=== PATIENT | female | born 1995 ===

== ENCOUNTER 2019-01-11 01:10 | Inpatient (IN) | payer MEDICAID ==
[2019-01-11] MEDS ORDERED: Methylergonovine 0.2 MG/1 ML Amp IM PRN (01:32)
[2019-01-11] MEDS ORDERED: Butorphanol 1 MG/ML SDV IVPUSH PRN (01:32)
[2019-01-11] MEDS ORDERED: Tranexamic Acid 1,000 MG in Sodium Chloride 0.9% 100 ML IV PRN (01:32)
[2019-01-11] MEDS ORDERED: Sodium Chloride 0.9% 10 ML SDV IV PRN (01:32)
[2019-01-11] MEDS ORDERED: Lidocaine 1% 50 ML MDV INJECT PRN (01:32)
[2019-01-11] MEDS ORDERED: Carboprost Tromethamine 250 MCG/1 ML Amp IM PRN (01:32)
[2019-01-11] MEDS ORDERED: Sodium Chloride 0.9% 10 ML Syringe FLUSH PRN (01:32)
[2019-01-11] MEDS ORDERED: Nalbuphine 10 MG/1 ML Vial IVPUSH PRN (01:32)
[2019-01-11] MEDS ORDERED: Sodium Chloride 0.9% 2.5 ML Syringe FLUSH PRN (01:32)
[2019-01-11] MEDS ORDERED: Ondansetron 4 MG/2 ML SDV IVPUSH PRN (01:32)
[2019-01-11] MEDS ORDERED: Misoprostol 200 MCG Tab PO PRN (01:32)
[2019-01-11] MEDS ORDERED: Water For Irrigation,Sterile 1,000 ML Container IRR PRN (01:32)
[2019-01-11] MEDS ORDERED: Oxytocin/0.9 % Sodium Chloride 30 UNIT/500 ML BAG IV SCH (01:45)
[2019-01-11] MEDS: Lactated Ringers 1,000 ML IV SCH ×3 (01:50→04:09)
[2019-01-11] MEDS ORDERED: Ropivacaine 0.2% 2 MG/ML 20 ML SDV ONE (02:35)
[2019-01-11] MEDS ORDERED: fentaNYL 100 MCG/2 ML SDV ONE ×2 (02:35→06:33)
[2019-01-11] MEDS ORDERED: Ropivacaine HCl/PF 100 ML ONE (02:35)
--- NOTE | 2019-01-11 03:37 | PCM.PREANE ---
Preanesthetic Assessment - Anesthesia/Transfusion/Family Hx Anesthesia History: Prior Anesthesia Without Reaction Family History of Anesthesia Reaction: No Transfusion History: No Prior Transfusion(s) Intubation History: Unknown - Review of Systems General: No Symptoms Pulmonary: No Symptoms Cardiovascular: No Symptoms Gastrointestinal: No Symptoms Neurological: No Symptoms Other: Reports: None - Physical Assessment NPO Status Date: 01/10/19 NPO Status Time: 20:00 Pulse: 98 O2 Sat by Pulse Oximetry: 98 Respiratory Rate: 20 Blood Pressure: 124/78 Height: 1.65 m Weight: 83.915 kg ASA Class: 2 Mental Status: Alert & Oriented x3 Dentition: Reports: Normal Dentition ROM/Head Extension: Full Lungs: Clear to Auscultation Cardiovascular: Regular Rate - Lab Values: Laboratory Last Values WBC 10.85 K/uL (4.0-11.0) 01/11/19 01:56 RBC 4.11 M/uL (4.30-5.90) L 01/11/19 01:56 Hgb 13.3 g/dL (12.0-16.0) 01/11/19 01:56 Hct 38.9 % (36.0-46.0) 01/11/19 01:56 MCV 94.6 fL (80.0-98.0) 01/11/19 01:56 MCH 32.4 pg (27.0-32.0) H 01/11/19 01:56 MCHC 34.2 g/dL (31.0-37.0) 01/11/19 01:56 RDW Std Deviation 45.9 fl (28.0-62.0) 01/11/19 01:56 RDW Coeff of Kiarra 13 % (11.0-15.0) 01/11/19 01:56 Plt Count 172 K/uL (150-400) 01/11/19 01:56 MPV 11.20 fL (7.40-12.00) 01/11/19 01:56 Nucleated RBC % 0.0 /100WBC 01/11/19 01:56 Nucleated RBCs # 0 K/uL 01/11/19 01:56 Blood Type O POSITIVE 01/11/19 01:56 Antibody Screen NEGATIVE 01/11/19 01:56 - Allergies Allergies/Adverse Reactions: Allergies Allergy/AdvReac Type Severity Reaction Status Date / Time Penicillins Allergy Anaphylactic Verified 01/10/19 17:54 Shock - Blood Blood Available: No - Anesthesia Plan Pre-Op Medication Ordered: None - Acknowledgements Anesthesia Type Planned: Epidural Pt an Appropriate Candidate for the Planned Anesthesia: Yes Alternatives and Risks of Anesthesia Discussed w Pt/Guardian: Yes Pt/Guardian Understands and Agrees with Anesthesia Plan: Yes Additional Comments: Acceptable candidate. Discussed, ? answered, wishes to proceed. PreAnesthesia Questionnaire - HOME MEDS Home Medications: Home Meds PNV95/Ferrous Fumarate/FA [ Vitamin Tablet] 1 tab PO DAILY 01/10/19 [ History] valACYclovir HCl [Valtrex] 1 tab PO DAILY 01/10/19 [History] - CURRENT (IN HOUSE) MEDS Current Meds: Current Medications Butorphanol Tartrate (Stadol) 1 mg IVPUSH Q1H PRN PRN Reason: Pain Carboprost Tromethamine (Hemabate Ds) 250 mcg IM ASDIRECTED PRN PRN Reason: Post Hemorrhage Lactated Ringer's (Ringers, Lactated) 1,000 mls @ 150 mls/hr IV ASDIRECTED [facility] Last Admin: 01/11/19 02:54 Dose: 999 mls/hr Oxytocin/Sodium Chloride (Oxytocin 30 Unit/500 Ml-Ns) 30 unit in 500 mls @ 999 mls/hr IV TITRATE [facility] Tranexamic Acid 1,000 mg/ (Sodium Chloride) 110 mls @ 660 mls/hr IV ONETIME PRN PRN Reason: Bleeding Lidocaine HCl (Xylocaine 1%) 50 ml INJECT ONETIME PRN PRN Reason: Laceration repair Methylergonovine Maleate (Methergine) 0.2 mg IM ASDIRECTED PRN PRN Reason: Post Hemorrhage Misoprostol (Cytotec) 200 mcg PO ONETIME PRN PRN Reason: Post Hemorrhage Nalbuphine HCl (Nubain) 10 mg IVPUSH Q1H PRN PRN Reason: Pain (severe 7-10) Ondansetron HCl (Zofran) 4 mg IVPUSH Q6H PRN PRN Reason: Nausea/Vomiting Sodium Chloride (Saline Flush) 10 ml FLUSH ASDIRECTED PRN PRN Reason: Keep Vein Open Sodium Chloride (Saline Flush) 2.5 ml FLUSH ASDIRECTED PRN PRN Reason: Keep Vein Open Sodium Chloride (Normal Saline) 10 ml IV ASDIRECTED PRN PRN Reason: IV Use Sterile Water (Sterile Water For Irrigation) 1,000 ml IRR ASDIRECTED PRN PRN Reason: delivery Discontinued Medications Fentanyl (Sublimaze) Confirm Administered Dose 100 mcg .ROUTE .STK-MED ONE Stop: 01/11/19 02:36 Ropivacaine (Naropin 0.2%) Confirm Administered Dose 100 mls @ as directed .ROUTE .STK-MED ONE Stop: 01/11/19 02:36 Ropivacaine (Naropin 0.2%) Confirm Administered Dose 20 ml .ROUTE .STK-MED ONE Stop: 01/11/19 02:36
[2019-01-11] MEDS ORDERED: ePHEDrine 50 MG/ML SDV ONE (03:47)
--- NOTE | 2019-01-11 04:03 | PCM.PRNOTE ---
- Free Text/Narrative Note: Requested for labor analgesia. , active labor, dilated ~6cm. Discussed, ? answered, risks and benefits explained. Permit signed. Prep x3 with Betadine. 02:43 Lidocaine 1% 4ml skin local 02:45 Needle inserted 02:47 Space ID'd via DEISY with saline/air. Reconfirmed with 3ml saline. 02:48 Catheter to 8cm without issues. 02:50 Test dose with 5ml 1.5% Lido with 1:200K epi. Test negative. 02:53 Bolus with 8ml 0.2% Naropin + 100mcg Fentanyl over 4 minutes. Occlusive drsg applied. 03:11 Gtt started 8ml/hr, 4ml/q15 bolus. discomfort resolving well. Pain <2. Tolerated well. No problems noted currently.
--- NOTE | 2019-01-11 04:17 | PCM.SN ---
- Free Text/Narrative Note: Called to room @ ~03:49. Pt nauseated, HR 50's BP 88/ FHT 90's. epidural off. Ephidrine 10mg IV given, fluids opened, BP 118/ HR 88 FHT 140's. 0:410: Doing well VSS. Epidural negative aspiration. Comfortable. Will leave pump off for now. Comfortable.
[2019-01-11] MEDS ORDERED: Bupivacaine 0.5% 30 ML SDV ONE (06:33)
--- NOTE | 2019-01-11 06:52 | PCM.SN ---
- Free Text/Narrative Note: Called for increasing pain. Pt complete. Pain scale 10+. Very agitated. Marcaine 0.5% 6ml + 100mcg Fentanyl given via slow bolus over 3 minutes. Negative aspirate pre/post. Pain lessening. Ready to push.
[2019-01-11] MEDS ORDERED: oxyCODONE 5 MG Tab PO PRN (06:58)
[2019-01-11] MEDS ORDERED: Bisacodyl 10 MG Supp RECTAL PRN (06:58)
[2019-01-11] MEDS ORDERED: Witch Hazel Medicated Pads 40/Jar TOP PRN (06:58)
[2019-01-11] MEDS ORDERED: Lanolin 100% Cream 7 GM Tube TOP PRN (06:58)
[2019-01-11] MEDS ORDERED: Docusate Sodium 100 MG Cap PO PRN (06:58)
[2019-01-11] MEDS ORDERED: Ibuprofen 400 MG Tab PO PRN (06:58)
[2019-01-11] MEDS ORDERED: Ibuprofen 800 MG Tab PO PRN (06:58)
[2019-01-11] MEDS ORDERED: Benzocaine/Menthol 20%-0.5% Spray 78 GM Cannister TOP PRN (06:58)
[2019-01-11] MEDS ORDERED: Acetaminophen 500 MG Tab PO PRN ×2 (06:58)
--- NOTE | 2019-01-11 06:58 | PCM.LDHP ---
L&D History of Present Illness - General Date of Service: 01/11/19 Admit Problem/Dx: Patient Status Order with Admit Dx/Problem 01/11/19 01:33 Patient Status [ADT] Routine Admission Diagnosis/Problem Admission Diagnosis/Problem - planned Source of Information: Patient History Limitations: Reports: No Limitations - History of Present Illness Improves with: Reports: None Worsens with: Reports: None Associated Symptoms: Reports: N - Related Data Allergies/Adverse Reactions: Allergies Allergy/AdvReac Type Severity Reaction Status Date / Time Penicillins Allergy Anaphylactic Verified 01/10/19 17:54 Shock Home Medications: Home Meds PNV95/Ferrous Fumarate/FA [ Vitamin Tablet] 1 tab PO DAILY 01/10/19 [ History] valACYclovir HCl [Valtrex] 1 tab PO DAILY 01/10/19 [History] Past Medical History - Past Health History Medical/Surgical History: Denies Medical/Surgical History CLINICAL INFORMATICS SPEC History: Reports: Psychiatric History: Reports: Addiction Other Psychiatric History: 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 - Past Surgical History GI Surgical History: Reports: Appendectomy Social & Family History - Family History OBGYN: Reports: Neurological: Reports: Other (See Below) Other Neurological Family History: Stroke. Psychiatric: Reports: Anxiety Oncologic: Reports: Other (See Below) Other Oncologic Family History: Grandmother of unknown kind. - Tobacco Use Smoking Status *Q: Never Smoker Second Hand Smoke Exposure: No - Caffeine Use Caffeine Use: Reports: Coffee - Recreational Drug Use Recreational Drug Use: Yes Drug Use in Last 12 Months: No Recreational Drug Type: Reports: Methamphetamine Recreational Drug Use Frequency: Not Used In Over 6 Months Recreational Drug Last Use: 2015 H&P Review of Systems - Review of Systems: Review Of Systems: See Below General: Reports: No Symptoms HEENT: Reports: No Symptoms Pulmonary: Reports: No Symptoms Cardiovascular: Reports: No Symptoms Gastrointestinal: Reports: No Symptoms Genitourinary: Reports: No Symptoms Musculoskeletal: Reports: No Symptoms Skin: Reports: No Symptoms Psychiatric: Reports: No Symptoms Neurological: Reports: No Symptoms Hematologic/Lymphatic: Reports: No Symptoms Immunologic: Reports: No Symptoms L&D Exam - Exam Exam: See Below - Vital Signs Vital Signs: Last Vital Signs Temp Pulse 98 01/11/19 03:37 Resp 20 01/11/19 03:37 BP 124/78 01/11/19 03:37 Pulse Ox 98 01/11/19 03:37 Weight: 83.915 kg - OB Specific Contraction Intensity: Moderate Movement: Active Heart Tones: Present Presentation: Vertex - Soria Score Soria Score Cervix Position: Anterior Soria Score Consistency: Soft Soria Score Effacement: >80% Soria Score Dilation: > 5 cm Soria Score Infant's Station: -2 Soria Score Total: 11 - Exam General: Alert, Oriented HEENT: PERRLA, Conjunctiva Clear, EACs Clear, EOMI, Hearing Intact, Mucosa Moist & Warner, Nares Patent, Normal Nasal Septum, Posterior Pharynx Clear, TMs Clear Neck: Supple, Trachea Midline Lungs: Clear to Auscultation, Normal Respiratory Effort Cardiovascular: Regular Rate, Regular Rhythm GI/Abdominal Exam: Normal Bowel Sounds, Soft, Non-Tender, No Organomegaly, No Distention, No Abnormal Bruit, No Mass, Pelvis Stable Rectal Exam: Normal Exam, Normal Rectal Tone Genitourinary: Normal external exam, Normal bimanual exam, Normal speculum exam Back Exam: Normal Inspection, Full Range of Motion Extremities: Normal Inspection, Normal Range of Motion, Non-Tender, No Pedal Edema, Normal Capillary Refill Skin: Warm, Dry, Intact Neurological: Cranial Nerves Intact, Reflexes Equal Bilateral Psychiatric: Alert, Normal Affect, Normal Mood - Patient Data Lab Results Last 24 hrs: Laboratory Results - last 24 hr 01/11/19 01/11/19 Range/Units 01:56 01:56 WBC 10.85 (4.0-11.0) K/uL RBC 4.11 L (4.30-5.90) M/uL Hgb 13.3 (12.0-16.0) g/dL Hct 38.9 (36.0-46.0) % MCV 94.6 (80.0-98.0) fL MCH 32.4 H (27.0-32.0) pg MCHC 34.2 (31.0-37.0) g/dL RDW Std Deviation 45.9 (28.0-62.0) fl RDW Coeff of Kiarra 13 (11.0-15.0) % Plt Count 172 (150-400) K/uL MPV 11.20 (7.40-12.00) fL Nucleated RBC % 0.0 /100WBC Nucleated RBCs # 0 K/uL Blood Type O POSITIVE Antibody Screen NEGATIVE Result Diagrams: 01/11/19 01:56 Problem List Initiated/Reviewed/Updated: Yes Orders Last 24hrs: Active Orders 24 hr Category Date Time Status Patient Status [ADT] Routine ADT 01/11/19 01:33 Active May Shower [RC] ASDIRECTED Care 01/11/19 01:33 Active Notify Provider [RC] PRN Care 01/11/19 01:33 Active Up ad [place] [RC] ASDIRECTED Care 01/11/19 01:33 Active Vital Signs [RC] PER UNIT ROUTINE Care 01/11/19 01:33 Active Butorphanol [Stadol] Med 01/11/19 01:32 Active 1 mg IVPUSH Q1H PRN Carboprost Tromethamine [Hemabate DS] Med 01/11/19 01:32 Active 250 mcg IM ASDIRECTED PRN Lactated Ringers [Ringers, Lactated] 1,000 ml Med 01/11/19 01:45 Active IV ASDIRECTED Lidocaine 1% [Xylocaine 1%] Med 01/11/19 01:32 Active 50 ml INJECT ONETIME PRN Methylergonovine [Methergine] Med 01/11/19 01:32 Active 0.2 mg IM ASDIRECTED PRN Nalbuphine [Nubain] Med 01/11/19 01:32 Active 10 mg IVPUSH Q1H PRN Ondansetron [Zofran] Med 01/11/19 01:32 Active 4 mg IVPUSH Q6H PRN Oxytocin/0.9 % Sodium Chloride [Oxytocin 30 Unit/500 ML Med 01/11/19 01:45 Active -NS] 30 unit in 500 ml IV TITRATE Sodium Chloride 0.9% [Normal Saline] Med 01/11/19 01:32 Active 10 ml IV ASDIRECTED PRN Sodium Chloride 0.9% [Saline Flush] Med 01/11/19 01:32 Active 10 ml FLUSH ASDIRECTED PRN Sodium Chloride 0.9% [Saline Flush] Med 01/11/19 01:32 Active 2.5 ml FLUSH ASDIRECTED PRN Tranexamic Acid [Cyklokapron] 1,000 mg Med 01/11/19 01:32 Active Sodium Chloride 0.9% [Normal Saline] 100 ml IV ONETIME Water For Irrigation,Sterile [Sterile Water for Med 01/11/19 01:32 Active Irrigation] 1,000 ml IRR ASDIRECTED PRN miSOPROStol [Cytotec] Med 01/11/19 01:32 Active 200 mcg PO ONETIME PRN Scalp Electrode [WOMSER] Per Unit Routine Oth 01/11/19 01:33 Ordered Peripheral IV Insertion Adult [OM.PC] Routine Oth 01/11/19 01:33 Ordered Resuscitation Status Routine Resus Stat 01/11/19 01:32 Ordered Medication Orders Butorphanol Tartrate (Stadol) 1 mg IVPUSH Q1H PRN PRN Reason: Pain Carboprost Tromethamine (Hemabate Ds) 250 mcg IM ASDIRECTED PRN PRN Reason: Post Hemorrhage Lactated Ringer's (Ringers, Lactated) 1,000 mls @ 150 mls/hr IV ASDIRECTED [facility] Last Admin: 01/11/19 04:09 Dose: 999 mls/hr Infusion: 01/11/19 03:55 Dose: 999 mls/hr Admin: 01/11/19 02:54 Dose: 999 mls/hr Infusion: 01/11/19 02:51 Dose: 999 mls/hr Admin: 01/11/19 01:50 Dose: 999 mls/hr Oxytocin/Sodium Chloride (Oxytocin 30 Unit/500 Ml-Ns) 30 unit in 500 mls @ 999 mls/hr IV TITRATE [facility] Tranexamic Acid 1,000 mg/ (Sodium Chloride) 110 mls @ 660 mls/hr IV ONETIME PRN PRN Reason: Bleeding Lidocaine HCl (Xylocaine 1%) 50 ml INJECT ONETIME PRN PRN Reason: Laceration repair Methylergonovine Maleate (Methergine) 0.2 mg IM ASDIRECTED PRN PRN Reason: Post Hemorrhage Misoprostol (Cytotec) 200 mcg PO ONETIME PRN PRN Reason: Post Hemorrhage Nalbuphine HCl (Nubain) 10 mg IVPUSH Q1H PRN PRN Reason: Pain (severe 7-10) Ondansetron HCl (Zofran) 4 mg IVPUSH Q6H PRN PRN Reason: Nausea/Vomiting Sodium Chloride (Saline Flush) 10 ml FLUSH ASDIRECTED PRN PRN Reason: Keep Vein Open Sodium Chloride (Saline Flush) 2.5 ml FLUSH ASDIRECTED PRN PRN Reason: Keep Vein Open Sodium Chloride (Normal Saline) 10 ml IV ASDIRECTED PRN PRN Reason: IV Use Sterile Water (Sterile Water For Irrigation) 1,000 ml IRR ASDIRECTED PRN PRN Reason: delivery
--- NOTE | 2019-01-11 09:17 | PCM48HPAN ---
Post Anesthesia Note - EVALUATION WITHIN 48HRS OF ANESTHETIC Vital Signs in Normal Range: Yes Patient Participated in Evaluation: Yes Respiratory Function Stable: Yes Airway Patent: Yes Cardiovascular Function Stable: Yes Hydration Status Stable: Yes Pain Control Satisfactory: Yes Nausea and Vomiting Control Satisfactory: Yes Mental Status Recovered: Yes Pulse Rate: 98 SaO2: 97 Resp Rate: 20 Blood Pressure: 124/78 - COMMENTS/OBSERVATIONS Free Text/Narrative:: Doing well post . no problems noted post.
--- NOTE | 2019-01-11 10:57 | OR ---
SURGEON: Pro Lira MD DATE OF PROCEDURE: Mrs. Mcintosh is a 23-year-old. She has multiparous. She is admitted in active labor. At the time of admission, she was 6 cm, 90% vertex, -3 with intact bag of water. The patient has regular moderate contraction. heart rate was category 1. She had epidural anesthesia for labor analgesia. The patient has continued to progress and without any problem. She was able to accomplish normal spontaneous vaginal delivery of male fetus. score reported to be 8 and 9. The weight is not available. The placenta delivered spontaneous, complete, and intact without any problem. There was no need for episiotomy. There was no perineal, labial, or vaginal laceration. Estimated blood loss is 350 mL. heart rate was category 1 through the entire process of labor. There was no complication in the labor process and the delivery. BOO / CHRIS /[id number]
--- NOTE | 2019-01-12 09:25 | PCM.DCSUM1 ---
Discharge Summary - Hospital Course Free Text/Narrative:: Discharge home with . Follow up in 6 weeks for visit. Diagnosis: Stroke: No - Discharge Data Discharge Date: 01/12/19 Discharge Disposition: Home, Self-Care 01 Condition: Good - Patient Instructions Diet: Usual Diet as Tolerated Activity: As Tolerated, No Strenuous Activities, Rest and Relax Today Driving: May Drive Today Showering/Bathing: May Shower Notify Provider of: Fever, Increased Pain, Swelling and Redness, Nausea and/or Vomiting Other/Special Instructions: Discharge home with . Follow up in 6 weeks for visit. - Discharge Plan *PRESCRIPTION DRUG MONITORING PROGRAM REVIEWED*: Not Applicable *COPY OF PRESCRIPTION DRUG MONITORING REPORT IN PATIENT SHASHA: Not Applicable Prescriptions/Med Rec: Ibuprofen [Motrin] 800 mg PO Q6H PRN #90 tablet PRN Reason: Pain Home Medications: Home Meds PNV95/Ferrous Fumarate/FA [ Vitamin Tablet] 1 tab PO DAILY 01/10/19 [ History] valACYclovir HCl [Valtrex] 1 tab PO DAILY 01/10/19 [History] Ibuprofen [Motrin] 800 mg PO Q6H PRN #90 tablet 01/12/19 [Rx] Oxygen Therapy Mode: Room Air Referrals: [facility] [Outside] Pro Lira MD [Physician] - 02/16/19 8:30 am (6 weeks ) - Discharge Summary/Plan Comment DC Time >30 min.: No - General Info Date of Service: 01/12/19 Admission Dx/Problem (Free Text: Patient Status Order with Admit Dx/Problem 01/11/19 01:33 Patient Status [ADT] Routine Admission Diagnosis/Problem Admission Diagnosis/Problem - planned Functional Status: Reports: Pain Controlled, Tolerating Diet, Ambulating, Urinating - Review of Systems General: Reports: No Symptoms HEENT: Reports: No Symptoms Pulmonary: Reports: No Symptoms Cardiovascular: Reports: No Symptoms Gastrointestinal: Reports: No Symptoms Genitourinary: Reports: No Symptoms Musculoskeletal: Reports: No Symptoms Skin: Reports: No Symptoms Neurological: Reports: No Symptoms Psychiatric: Reports: No Symptoms - Patient Data Vitals - Most Recent: Last Vital Signs Temp 36.2 C 01/12/19 08:41 Pulse 68 01/12/19 08:41 Resp 17 01/12/19 08:41 BP 119/74 01/12/19 08:41 Pulse Ox 97 01/12/19 08:41 Weight - Most Recent: 83.915 kg Lab Results - Last 24 hrs: Laboratory Results - last 24 hr 01/12/19 Range/Units 04:50 Hgb 12.9 (12.0-16.0) g/dL Hct 38.6 (36.0-46.0) % Med Orders - Current: Current Medications Acetaminophen (Tylenol Extra Strength) 500 mg PO Q4H PRN PRN Reason: Pain Acetaminophen (Tylenol Extra Strength) 1,000 mg PO Q4H PRN PRN Reason: Pain Last Admin: 01/11/19 16:17 Dose: 1,000 mg Benzocaine/Menthol (Dermoplast Pain Relief 20%-0.5% [place]) 78 gm TOP ASDIRECTED PRN PRN Reason: Perineal Comfort Measure Last Admin: 01/11/19 09:33 Dose: 1 can Bisacodyl (Dulcolax) 10 mg RECTAL ONETIME PRN PRN Reason: Constipation Butorphanol Tartrate (Stadol) 1 mg IVPUSH Q1H PRN PRN Reason: Pain Carboprost Tromethamine (Hemabate Ds) 250 mcg IM ASDIRECTED PRN PRN Reason: Post Hemorrhage Docusate Sodium (Colace) 100 mg PO BID PRN PRN Reason: Constipation Emollient Ointment (Lansinoh Hpa) 0 gm TOP ASDIRECTED PRN PRN Reason: Sore Nipples Last Admin: 01/11/19 09:34 Dose: 1 tube Lactated Ringer's (Ringers, Lactated) 1,000 mls @ 150 mls/hr IV ASDIRECTED [facility] Last Admin: 01/11/19 04:09 Dose: 999 mls/hr Oxytocin/Sodium Chloride (Oxytocin 30 Unit/500 Ml-Ns) 30 unit in 500 mls @ 999 mls/hr IV TITRATE [facility] Tranexamic Acid 1,000 mg/ (Sodium Chloride) 110 mls @ 660 mls/hr IV ONETIME PRN PRN Reason: Bleeding Ibuprofen (Motrin) 400 mg PO Q4H PRN PRN Reason: Pain Ibuprofen (Motrin) 800 mg PO Q6H PRN PRN Reason: Pain Last Admin: 01/11/19 20:01 Dose: 800 mg Lidocaine HCl (Xylocaine 1%) 50 ml INJECT ONETIME PRN PRN Reason: Laceration repair Methylergonovine Maleate (Methergine) 0.2 mg IM ASDIRECTED PRN PRN Reason: Post Hemorrhage Misoprostol (Cytotec) 200 mcg PO ONETIME PRN PRN Reason: Post Hemorrhage Nalbuphine HCl (Nubain) 10 mg IVPUSH Q1H PRN PRN Reason: Pain (severe 7-10) Ondansetron HCl (Zofran) 4 mg IVPUSH Q6H PRN PRN Reason: Nausea/Vomiting Oxycodone HCl (Oxycodone) 5 mg PO Q2H PRN PRN Reason: Pain Sodium Chloride (Saline Flush) 10 ml FLUSH ASDIRECTED PRN PRN Reason: Keep Vein Open Sodium Chloride (Saline Flush) 2.5 ml FLUSH ASDIRECTED PRN PRN Reason: Keep Vein Open Sodium Chloride (Normal Saline) 10 ml IV ASDIRECTED PRN PRN Reason: IV Use Sterile Water (Sterile Water For Irrigation) 1,000 ml IRR ASDIRECTED PRN PRN Reason: delivery Elbert Mejía (Tucks) 1 pad TOP ASDIRECTED PRN PRN Reason: comfort care Last Admin: 01/11/19 09:33 Dose: 1 tub Discontinued Medications Bupivacaine HCl (Marcaine 0.5%) Confirm Administered Dose 30 ml .ROUTE .STK-MED ONE Stop: 01/11/19 06:34 Last Admin: 01/11/19 16:32 Dose: Not Given Ephedrine Sulfate (Ephedrine Sulfate) Confirm Administered Dose 50 mg .ROUTE .STK-MED ONE Stop: 01/11/19 03:48 Last Admin: 01/11/19 16:32 Dose: Not Given Fentanyl (Sublimaze) Confirm Administered Dose 100 mcg .ROUTE .STK-MED ONE Stop: 01/11/19 02:36 Last Admin: 01/11/19 16:32 Dose: Not Given Fentanyl (Sublimaze) Confirm Administered Dose 100 mcg .ROUTE .STK-MED ONE Stop: 01/11/19 06:34 Last Admin: 01/11/19 16:32 Dose: Not Given Ropivacaine (Naropin 0.2%) Confirm Administered Dose 100 mls @ as directed .ROUTE .STK-MED ONE Stop: 01/11/19 02:36 Last Admin: 07/15/19 16:32 Dose: Not Given Ropivacaine (Naropin 0.2%) Confirm Administered Dose 20 ml .ROUTE .STK-MED ONE Stop: 01/11/19 02:36 Last Admin: 01/11/19 16:31 Dose: Not Given - Exam General: Reports: Alert, Oriented, Cooperative, No Acute Distress Lungs: Reports: Normal Respiratory Effort GI/Abdominal Exam: Soft, Non-Tender (Female) Exam: Deferred, Vaginal Bleeding Rectal (Female) Exam: Deferred Back Exam: Reports: Full Range of Motion Extremities: Normal Range of Motion, No Pedal Edema Skin: Reports: Warm, Dry, Intact Neurological: Reports: No New Focal Deficit, Normal Speech, Normal Tone, Strength Equal Bilateral Psy/Mental Status: Reports: Alert, Normal Affect, Normal Mood
== END 2019-01-12 11:05 | disposition home or self-care (01) | DRG 807 ==
LOC: MW.OBCHECK 01:10 → MW.OB 01:12 → MW.OBCHECK 01:33 → OBSVTOIN 06:47 → MW.OB 10:15
PROVIDERS: ADMIT Obstetrics & Gynecology; ATTEND Obstetrics & Gynecology
PROC: 3E0R3BZ Introduction of Anesthetic Agent into Spinal Canal, Percutaneous Approach (ICD-10-PCS; principal; 2019-01-11)
PROC: 00HU33Z Insertion of Infusion Device into Spinal Canal, Percutaneous Approach (ICD-10-PCS; 2019-01-11)
PROC: 10E0XZZ Delivery of Products of Conception, External Approach (ICD-10-PCS; 2019-01-11)
DX: O48.0 Post-term pregnancy (principal); Z37.0 Single live birth; Z3A.40 40 weeks gestation of pregnancy
CPT/HCPCS: 36415; 51702; 59025; 59409; 85014; 85018; 85027; 86850; 86900; 86901; A9270-GY; J2795; J3010; J3490; J7120